=== PATIENT | female | born 1950 | race Caucasian/White ===

== ENCOUNTER 2022-10-28 00:14 | Outpatient (RCR) | payer MEDICARE, MEDICAID, SELFPAY | END 2022-11-22 23:59 | disposition home or self-care (01) | LOC: MM 00:14 | PROVIDERS: Visit Provider Internal Medicine | DX: Z51.81 Encounter for therapeutic drug level monitoring (principal); Z79.01 Long term (current) use of anticoagulants; I26.99 Other pulmonary embolism without acute cor pulmonale | CPT/HCPCS: 85610; G0463 ==

== ENCOUNTER 2022-11-28 10:53 | Outpatient (RCR) | payer MEDICARE, MEDICAID, SELFPAY | END 2022-12-23 16:57 | disposition home or self-care (01) | LOC: MM 10:53 | PROVIDERS: PCP Internal Medicine; Visit Provider Internal Medicine | DX: Z51.81 Encounter for therapeutic drug level monitoring (principal); Z79.01 Long term (current) use of anticoagulants; I26.99 Other pulmonary embolism without acute cor pulmonale | CPT/HCPCS: 85610; G0463 ==

== ENCOUNTER 2022-12-24 09:17 | Outpatient (RCR) | payer MEDICARE, MEDICAID, SELFPAY | END 2023-01-23 17:32 | disposition home or self-care (01) | LOC: MM 09:17 | PROVIDERS: Visit Provider Internal Medicine | DX: Z51.81 Encounter for therapeutic drug level monitoring (principal); Z79.01 Long term (current) use of anticoagulants; I26.99 Other pulmonary embolism without acute cor pulmonale | CPT/HCPCS: 85610; G0463 ==

== ENCOUNTER 2023-01-24 10:17 | Outpatient (RCR) | payer MEDICARE, MEDICAID, SELFPAY | END 2023-02-21 16:49 | disposition home or self-care (01) | LOC: MM 10:17 | PROVIDERS: Visit Provider Internal Medicine | DX: Z51.81 Encounter for therapeutic drug level monitoring (principal); Z79.01 Long term (current) use of anticoagulants; I26.99 Other pulmonary embolism without acute cor pulmonale | CPT/HCPCS: 85610; G0463 ==

== ENCOUNTER 2023-02-24 01:49 | Outpatient (RCR) | payer MEDICARE, MEDICAID, SELFPAY | END 2023-03-25 17:23 | disposition home or self-care (01) | LOC: MM 01:49 | PROVIDERS: Visit Provider Internal Medicine | DX: Z51.81 Encounter for therapeutic drug level monitoring (principal); Z79.01 Long term (current) use of anticoagulants; I26.99 Other pulmonary embolism without acute cor pulmonale | CPT/HCPCS: 85610; G0463 ==

== ENCOUNTER 2023-03-26 00:15 | Outpatient (RCR) | payer MEDICARE, MEDICAID, SELFPAY | END 2023-04-24 16:04 | disposition home or self-care (01) | LOC: MM 00:15 | PROVIDERS: Visit Provider Internal Medicine | DX: Z51.81 Encounter for therapeutic drug level monitoring (principal); Z79.01 Long term (current) use of anticoagulants; I26.99 Other pulmonary embolism without acute cor pulmonale | CPT/HCPCS: 85610; G0463 ==

== ENCOUNTER 2023-04-25 09:14 | Outpatient (RCR) | payer MEDICARE, MEDICAID, SELFPAY | END 2023-05-23 14:34 | disposition home or self-care (01) | LOC: MM 09:14 | PROVIDERS: Visit Provider Internal Medicine | DX: Z51.81 Encounter for therapeutic drug level monitoring (principal); Z79.01 Long term (current) use of anticoagulants; I26.99 Other pulmonary embolism without acute cor pulmonale ==

== ENCOUNTER 2023-05-26 01:26 | Outpatient (RCR) | payer MEDICARE, MEDICAID, SELFPAY | END 2023-06-25 16:54 | disposition home or self-care (01) | LOC: MM 01:26 | PROVIDERS: Visit Provider Internal Medicine | DX: Z51.81 Encounter for therapeutic drug level monitoring (principal); Z79.01 Long term (current) use of anticoagulants; I26.99 Other pulmonary embolism without acute cor pulmonale | CPT/HCPCS: 85610; G0463 ==

== ENCOUNTER 2023-06-26 00:45 | Outpatient (RCR) | payer MEDICARE, MEDICAID, SELFPAY | END 2023-07-24 17:23 | disposition home or self-care (01) | LOC: MM 00:45 | PROVIDERS: Visit Provider Internal Medicine | DX: Z51.81 Encounter for therapeutic drug level monitoring (principal); Z79.01 Long term (current) use of anticoagulants; I26.99 Other pulmonary embolism without acute cor pulmonale ==

== ENCOUNTER 2023-07-25 01:16 | Outpatient (RCR) | payer MEDICARE, MEDICAID, SELFPAY | END 2023-08-22 13:21 | disposition home or self-care (01) | LOC: MM 01:16 | PROVIDERS: Visit Provider Internal Medicine | DX: Z51.81 Encounter for therapeutic drug level monitoring (principal); Z79.01 Long term (current) use of anticoagulants; I26.99 Other pulmonary embolism without acute cor pulmonale | CPT/HCPCS: 85610; G0463 ==

== ENCOUNTER 2023-08-25 00:10 | Outpatient (RCR) | payer MEDICARE, MEDICAID, SELFPAY | END 2023-09-23 17:53 | disposition home or self-care (01) | LOC: MM 00:10 | PROVIDERS: Visit Provider Internal Medicine | DX: Z51.81 Encounter for therapeutic drug level monitoring (principal); Z79.01 Long term (current) use of anticoagulants; I26.99 Other pulmonary embolism without acute cor pulmonale | CPT/HCPCS: 85610; G0463 ==

== ENCOUNTER 2023-09-24 04:36 | Outpatient (RCR) | payer MEDICARE, MEDICAID, SELFPAY | END 2023-10-24 11:51 | disposition home or self-care (01) | LOC: MM 04:36 | PROVIDERS: Visit Provider Internal Medicine | DX: Z51.81 Encounter for therapeutic drug level monitoring (principal); Z79.01 Long term (current) use of anticoagulants; I48.91 Unspecified atrial fibrillation ==

== ENCOUNTER 2023-10-27 00:30 | Outpatient (RCR) | payer MEDICARE, MEDICAID, SELFPAY | END 2023-11-21 11:05 | disposition home or self-care (01) | LOC: MM 00:30 | PROVIDERS: Visit Provider Internal Medicine | DX: Z51.81 Encounter for therapeutic drug level monitoring (principal); Z79.01 Long term (current) use of anticoagulants; I48.91 Unspecified atrial fibrillation ==

== ENCOUNTER 2023-11-24 00:56 | Outpatient (RCR) | payer MEDICARE, MEDICAID, SELFPAY | END 2023-12-24 09:51 | disposition home or self-care (01) | LOC: MM 00:56 | PROVIDERS: Visit Provider Internal Medicine | DX: Z51.81 Encounter for therapeutic drug level monitoring (principal); Z79.01 Long term (current) use of anticoagulants; I48.91 Unspecified atrial fibrillation ==

== ENCOUNTER 2023-12-25 00:19 | Outpatient (RCR) | payer MEDICARE, MEDICAID, SELFPAY | END 2024-01-23 09:50 | disposition home or self-care (01) | LOC: MM 00:19 | PROVIDERS: Visit Provider Internal Medicine | DX: Z51.81 Encounter for therapeutic drug level monitoring (principal); Z79.01 Long term (current) use of anticoagulants; I26.99 Other pulmonary embolism without acute cor pulmonale ==

== ENCOUNTER 2024-01-26 01:26 | Outpatient (RCR) | payer MEDICARE, MEDICAID, SELFPAY | END 2024-02-23 23:39 | disposition home or self-care (01) | LOC: MM 01:26 | PROVIDERS: Visit Provider Internal Medicine | DX: Z51.81 Encounter for therapeutic drug level monitoring (principal); Z79.01 Long term (current) use of anticoagulants; I26.99 Other pulmonary embolism without acute cor pulmonale ==

== ENCOUNTER 2024-02-24 02:26 | Outpatient (RCR) | payer MEDICARE, MEDICAID, SELFPAY | END 2024-03-25 23:11 | disposition home or self-care (01) | LOC: MM 02:26 | PROVIDERS: Visit Provider Internal Medicine | DX: Z51.81 Encounter for therapeutic drug level monitoring (principal); Z79.01 Long term (current) use of anticoagulants; Z86.711 Personal history of pulmonary embolism ==

== ENCOUNTER 2024-03-26 11:57 | Outpatient (RCR) | payer MEDICARE, MEDICAID, SELFPAY | END 2024-04-24 23:59 | disposition home or self-care (01) | LOC: MM 11:57 | PROVIDERS: Visit Provider Internal Medicine | DX: Z51.81 Encounter for therapeutic drug level monitoring (principal); Z79.01 Long term (current) use of anticoagulants; I48.91 Unspecified atrial fibrillation ==

== ENCOUNTER 2024-04-26 04:13 | Outpatient (RCR) | payer MEDICARE, MEDICAID, SELFPAY | END 2024-05-25 09:31 | disposition home or self-care (01) | LOC: MM 04:13 | PROVIDERS: Visit Provider Internal Medicine | DX: Z51.81 Encounter for therapeutic drug level monitoring (principal); Z79.01 Long term (current) use of anticoagulants; I48.91 Unspecified atrial fibrillation ==

== ENCOUNTER 2024-05-27 00:48 | Outpatient (RCR) | payer MEDICARE, MEDICAID, SELFPAY | END 2024-06-25 14:45 | disposition home or self-care (01) | LOC: MM 00:48 | PROVIDERS: Visit Provider Internal Medicine | DX: Z51.81 Encounter for therapeutic drug level monitoring (principal); Z79.01 Long term (current) use of anticoagulants; I48.91 Unspecified atrial fibrillation | CPT/HCPCS: 85610; G0463 ==

== ENCOUNTER 2024-06-28 00:44 | Outpatient (RCR) | payer MEDICARE, MEDICAID, SELFPAY | END 2024-07-23 11:03 | disposition home or self-care (01) | LOC: MM 00:44 | PROVIDERS: Visit Provider Internal Medicine | DX: Z51.81 Encounter for therapeutic drug level monitoring (principal); Z79.01 Long term (current) use of anticoagulants; I26.99 Other pulmonary embolism without acute cor pulmonale | CPT/HCPCS: 85610; G0463 ==

== ENCOUNTER 2024-07-25 08:09 | Outpatient (RCR) | payer MEDICARE, MEDICAID, SELFPAY | END 2024-08-20 13:30 | disposition home health service (06) | LOC: MM 08:09 | PROVIDERS: Visit Provider Internal Medicine | DX: Z51.81 Encounter for therapeutic drug level monitoring (principal); Z79.01 Long term (current) use of anticoagulants; I26.99 Other pulmonary embolism without acute cor pulmonale ==

== ENCOUNTER 2024-08-24 06:00 | Outpatient (RCR) | payer MEDICARE, MEDICAID, SELFPAY | END 2024-09-22 15:01 | disposition home or self-care (01) | LOC: MM 06:00 | PROVIDERS: Visit Provider Internal Medicine | DX: Z51.81 Encounter for therapeutic drug level monitoring (principal); Z79.01 Long term (current) use of anticoagulants; I48.91 Unspecified atrial fibrillation ==

== ENCOUNTER 2024-09-23 04:35 | Outpatient (RCR) | payer MEDICARE, MEDICAID, SELFPAY | END 2024-10-22 15:08 | disposition home or self-care (01) | LOC: MM 04:35 | PROVIDERS: Visit Provider Internal Medicine | DX: Z51.81 Encounter for therapeutic drug level monitoring (principal); Z79.01 Long term (current) use of anticoagulants; I48.91 Unspecified atrial fibrillation ==

== ENCOUNTER 2024-10-24 07:16 | Outpatient (RCR) | payer MEDICARE, MEDICAID, SELFPAY | END 2024-11-18 14:20 | disposition home or self-care (01) | LOC: MM 07:16 | PROVIDERS: Visit Provider Internal Medicine | DX: Z51.81 Encounter for therapeutic drug level monitoring (principal); Z79.01 Long term (current) use of anticoagulants; I48.91 Unspecified atrial fibrillation ==

== ENCOUNTER 2024-11-23 02:46 | Outpatient (RCR) | payer MEDICARE, MEDICAID, SELFPAY | END 2024-12-23 16:46 | disposition home or self-care (01) | LOC: MM 02:46 | PROVIDERS: Visit Provider Internal Medicine | DX: Z51.81 Encounter for therapeutic drug level monitoring (principal); Z79.01 Long term (current) use of anticoagulants; I48.91 Unspecified atrial fibrillation ==

== ENCOUNTER 2024-12-24 02:28 | Outpatient (RCR) | payer MEDICARE, MEDICAID, SELFPAY | END 2025-01-20 13:01 | disposition home or self-care (01) | LOC: MM 02:28 | PROVIDERS: Visit Provider Internal Medicine | DX: Z51.81 Encounter for therapeutic drug level monitoring (principal); Z79.01 Long term (current) use of anticoagulants; I48.91 Unspecified atrial fibrillation ==

== ENCOUNTER 2025-01-24 01:19 | Outpatient (RCR) | payer MEDICARE, MEDICAID, SELFPAY | END 2025-02-22 15:23 | disposition home or self-care (01) | LOC: MM 01:19 | PROVIDERS: Visit Provider Internal Medicine | DX: Z51.81 Encounter for therapeutic drug level monitoring (principal); Z79.01 Long term (current) use of anticoagulants; I26.99 Other pulmonary embolism without acute cor pulmonale ==

== ENCOUNTER 2025-02-23 04:27 | Outpatient (RCR) | payer MEDICARE, MEDICAID, SELFPAY | END 2025-03-25 23:59 | disposition home or self-care (01) | LOC: MM 04:27 | PROVIDERS: Visit Provider Internal Medicine | DX: Z51.81 Encounter for therapeutic drug level monitoring (principal); Z79.01 Long term (current) use of anticoagulants; I48.91 Unspecified atrial fibrillation ==

== ENCOUNTER 2025-03-29 12:04 | Outpatient (RCR) | payer MEDICARE, MEDICAID, SELFPAY | END 2025-04-24 23:59 | disposition home or self-care (01) | LOC: MM 12:04 | PROVIDERS: Visit Provider Internal Medicine | DX: Z51.81 Encounter for therapeutic drug level monitoring (principal); Z79.01 Long term (current) use of anticoagulants ==